=== PATIENT | female | born 1980 ===

== ENCOUNTER 2023-09-05 12:30 | Inpatient (IN) | payer OTHER ==
[~2023-09-05] VITALS: Ht 154.9 cm; Wt 84.8 kg
[2023-09-05] MEDS ORDERED: MAGNESIUM200 M1 (13:44)
[2023-09-05] MEDS ORDERED: OSTERA TABLET1 EACH (13:44)
[2023-09-05] MEDS ORDERED: MOUNJARO7.5 MG/0.5 (13:44)
[2023-09-05] MEDS ORDERED: MAXFE CAPLET1 EAC1 (13:45)
[2023-09-05 15:33] LABS: INR 1.23; PROTHROMBIN TIME 12.7 SECONDS (9.0-11.5)
[2023-09-12] MEDS ORDERED: CEFAZOLIN SODIUM 1,000 MG VIAL ONE ×2 (06:55→11:29)
[2023-09-12] MEDS ORDERED: POVIDONE-IODINE 118 ML BOTT TOP ONE ×2 (06:58→09:00)
[2023-09-12] MEDS ORDERED: LIDOCAINE HCL/EPINEPHRINE 10MG/ML 1% 50ML IJ ONE (08:03)
[2023-09-12] MEDS ORDERED: BUPIVACAINE HCL/PF 0.5% 30ML ML ONE (08:03)
[2023-09-12] MEDS ORDERED: LIDOCAINE HCL 1%/Epi 20ML VIAL IJ ONE ×2 (08:03→09:00)
[2023-09-12] MEDS ORDERED: HEMOSTATIC MATRIX 1 KIT KIT TOP ONE ×2 (08:51→09:00)
[2023-09-12] MEDS ORDERED: SURGIFLO APPLICATOR 1 EACH APPL TOP ONE ×2 (08:51→09:00)
[2023-09-12] MEDS ORDERED: CEFAZOLIN SODIUM 1,000 MG VIAL IV ONE (09:00)
[2023-09-12] MEDS ORDERED: BUPIVACAINE HCL 30 ML VIAL IJ ONE (09:00)
[2023-09-12] MEDS ORDERED: MORPHINE SULFATE 4 MG,MORPHINE SULFATE 2 MG IV PRN (09:15)
[2023-09-12] MEDS ORDERED: RINGERS SOLUTION,LACTATED 1,000 ML IV SCH (09:30)
[2023-09-12] MEDS ORDERED: ONDANSETRON HCL 2 MG/ML VIAL IV PRN (09:30)
[2023-09-12] MEDS ORDERED: DEXTROSE 50 % IN WATER 0.5 G/ML DISP.SYRIN IV PRN (09:30)
[2023-09-12] MEDS ORDERED: INSULIN LISPRO 1,000 UNIT/10 ML UNITS SUBCUTANEO PRN (09:30)
[2023-09-12 12:00] LABS: HEMATOCRIT 34.2 % (36.0-45.00); MEAN CELL VOLUME 74.1 fL (80.00-100.00); MEAN CORPUSCULAR HEMOGLOBIN 23.9 pg (27.00-32.0); MEAN CORPUSCULAR HGB CONC 32.2 g/dl (32.0-36.0); PLATELET COUNT 183 K/uL (150-450); RED BLOOD COUNT 4.61 M/uL (4.00-6.00); RED CELL DISTRIBUTION WIDTH 18.1 % (11.5-14.5)
[2023-09-12] MEDS ORDERED: CEFAZOLIN SODIUM 1,000 MG VIAL IV SCH (12:00)
[2023-09-13] MEDS ORDERED: KETOROLAC TROMETHAMINE 60 MG VIAL IM STA (06:53)
[2023-09-13] MEDS ORDERED: ENOXAPARIN SODIUM 40 MG/0.4 ML SYRINGE SUBCUTANEO SCH (09:00)
== END 2023-09-13 09:35 | disposition home or self-care (01) | DRG 743 ==
LOC: OB/GYN 09-12 05:25 → O/R 09-12 05:25 → SURH 09-12 07:45 → O/R 09-12 09:25 → OB/GYN 09-12 10:36 → SURH 09-12 12:30 → O/R 09-12 16:55 → OB/GYN 09-12 16:57
PROVIDERS: ADMIT Obstetrics & Gynecology Gynecology; ATTEND Obstetrics & Gynecology Gynecology
PROC: 0UT74ZZ Resection of Bilateral Fallopian Tubes, Percutaneous Endoscopic Approach (ICD-10-PCS; 2023-09-12)
PROC: 0UT94ZZ Resection of Uterus, Percutaneous Endoscopic Approach (ICD-10-PCS; principal; 2023-09-12 07:45)
DX: N84.0 Polyp of corpus uteri (principal); N72 Inflammatory disease of cervix uteri; Z20.822 Contact with and (suspected) exposure to COVID-19

== ENCOUNTER 2023-09-09 09:43 | Outpatient (CLI) | payer OTHER ==
[~2023-09-09 09:43] MED LIST: MAGNESIUM200 M1; MAXFE CAPLET1 EAC1; MOUNJARO7.5 MG/0.5; OSTERA TABLET1 EACH
[2023-09-09 11:43] LABS: PROTHROMBIN TIME 12.7 SECONDS (9.0-11.5)
[2023-09-09 11:44] LABS: INR 1.23
== END 2023-09-09 14:12 | disposition home or self-care (01) ==
LOC: LAB 09:43
PROVIDERS: ATTEND Internal Medicine Geriatric Medicine
DX: D68.4 Acquired coagulation factor deficiency (principal)